=== PATIENT | female | born 1950 | race Caucasian/White ===

== ENCOUNTER → 2017-01-03 | Outpatient (CLI) | payer BC ==
--- NOTE | 2017-01-03 21:08 | DI ---
MRI RIGHT SHOULDER SCAN, 01/03/2017 2:54 PM: Clinical History: Right shoulder pain. Previous Exam: None at this facility. Technique: Axial, coronal, and sagittal fat saturated PD; axial gradient FE; coronal fat saturatedT2 weighted; sagittal T2 weighted. There is no soft tissue edema or abnormal bone signal pattern. No significant joint effusion is prese nt but there is fluid in the tendon sheath of the long head of the biceps muscle consistent with teno synovitis. There is also fluid in the subacromion bursa. 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 Tendinosis is present in the supraspinatus tendon. There is a small 2 x 2 mm trey cular surface tear in the distal aspect of the conjoined tendon. The infraspinatus and subscapularis tendons also demonstrate tendinosis. The teres minor tendon is normal. There is a split in the tendon of the long head of the biceps muscle approximately 3 cm proximal to the rotator interval. The tendo n in the rotator interval shows tendinosis. There is a prominent anterior band of the inferior glenoh umeral ligament with a high attachment and absence of the anterosuperior portion of the glenoid labru m. The glenoid labrum itself is otherwise normal. No muscle atrophy is present. Readin. There is a tear in the distal extra-articular portion of the tendon of the long head of the bicep s muscle with tenosynovitis. This tendon in the rotator interval shows tendinosis. There is also tend inosis of the supraspinatus and subscapularis tendons with a very small 2 x 2 mm articular surface te ar in the distal portion of the conjoined tendon. Mild arthrosis of the AC joint is present. 2. The teres minor tendon and the glenoid labrum are normal. 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 There is a type I acromion.
== END ==
LOC: MRI 14:53
PROVIDERS: ATTEND Obstetrics & Gynecology Gynecology
DX: M25.511 Pain in right shoulder (principal); S46.811A Strain of other muscles, fascia and tendons at shoulder and upper arm level, right arm, initial encounter; M19.011 Primary osteoarthritis, right shoulder
CPT/HCPCS: 73221